=== PATIENT | male | born 1980 | race Caucasian/White ===

== ENCOUNTER 2024-11-02 23:54 | Emergency (ER) | payer OTHER, SELFPAY ==
[2024-11-02 23:57] VITALS: BP 130/90
[2024-11-03 00:24] LABS: Urine Character Clear (Clear)
[2024-11-03 00:42] LABS: Hematocrit 41.6 % (39.0-52.0); Hemoglobin 14.6 g/dL (13.0-18.0); Mean Corp Hgb Conc. 35.1 g/dL (33.0-37.0); Mean Corpuscular Volume 95.0 fL (80.0-94.0); Nucleated Red Blood Cells % 0 % (-); Platelet Count 200 10^3/uL (130-400); Red Cell Dist. Width 12.8 % (11.5-14.5)
[2024-11-03 00:56] LABS: ALT (SGPT) 37 U/L (0-50); AST (SGOT) 150 U/L (17-59); Albumin 5.2 g/dl (3.5-5.0); Alkaline Phosphatase 54 U/L (38-126); Blood Urea Nitrogen 13 mg/dl (9-20); Calcium 10.4 mg/dl (8.4-10.2); Carbon Dioxide 25 mmol/L (22-30); Chloride 103 mmol/L (98-107); Glucose 115 mg/dl (70-99); Lipase 70 U/L (23-300); Potassium 4.1 mmol/L (3.5-5.1); Sodium 138 mmol/L (135-145); Total Protein 8.0 g/dl (6.3-8.2); eGFR > 60.00
[2024-11-03 01:26] LABS: Urine Red Blood Cell 0-2 /HPF (0-2)
[2024-11-03 02:12] LABS: Urine Squamous Cell 0-2 /LPF (Few)
[2024-11-03 03:38] VITALS: BMI 22.1
[2024-11-03 03:40] VITALS: BP 115/75
--- NOTE | 2024-11-03 04:15 | ED.GENMED ---
History of Present Illness
<Daniela Iverson PA-C - Last Filed: 11/03/24 10:06>
General
Chief Complaint: Abdominal Pain
Source: patient
Exam Limitations: none
Time Seen by Provider: 11/03/24 03:27
Nursing documentation reviewed up to this point in time: agreed with
History of Present Illness
History of Present Illness:
The patient is a 41-year-old male with a past medical history significant for recurrent UTIs, atonic bladder self cath, presents to the ER today with concerns of generalized abdominal pain and pain localized to the bladder area, persisting for an
unspecified period. Patient states that he gets intermittent urinary infections and pelvic pain. He follows with a urologist from [facility]. He reports that the past few days he has had a burning sensation with explosion of urine and self
cathing procedure. The patient denies any recent fever or vomiting, denies any flank pain. The urine was noted to be abnormal in appearance by the patient he reports that it looks darker. He denies any risk for STDs/STIs. The patient mentions a
significant worsening of symptoms tonight. For his symptoms, the patient started taking left over ciprofloxacin in an unknown amount and dosing for the past 3 days. Patient expresses concern because normally the ciprofloxacin works well for his
infections and this time it is not working. He states that he has had kidney stones and blader stones in the past but this feels different. 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 He is up to date on his
vaccinations. Patient denies chest pain, shortness of breath, dizziness, lightheadedness. He does not drink alcohol or smoke.
Phy Exam
<Daniela Iverson PA-C - Last Filed: 11/03/24 10:06>
General Physical Exam
General Presentation: well appearing and no apparent distress
General age: appears stated age
General Skin: warm and dry
General Habitus: normal
General Mental: alert
General Hydration: appears well hydrated
Eye Exam
Eye Exam: PERRL and EOMI
Cardiovascular Exam
Cardiovascular Exam: regular rate/rhythm and no edema
Pulmonary Exam
Pulmonary Exam: lungs clear and no respiratory distress
Gastrointestinal Exam
Gastrointestinal Exam: normal bowel sounds, non tender, soft, no organomegaly, no pulsatile mass, non distended, no cva tenderness and no masses
Auscultation of Abdomen: normal
Neurological Exam
Neurological Exam: alert and oriented x3
Skin Exam
Skin Exam: normal color and warm/dry
Psychiatric Exam
Psychiatric Exam: anxious
Course
<Daniela Iverson PA-C - Last Filed: 11/03/24 10:06>
Orders/Labs/Results
Orders:
Orders
11/03/24 00:07
Complete Blood Count/With Diff Urgent
Comprehensive Metabolic Panel Urgent
Lipase Urgent
11/03/24 00:11
Urinalysis Urgent
Date Specimen was Collected: 11/03/24
Time Specimen was Collected: 00:01
Urine Microscopic Urgent
Date Specimen was Collected: 11/03/24
Time Specimen was Collected: 00:01
11/03/24 02:44
Abdomen/Pelvis w Contrast CT [CT Abd/pelvis W Iv Cont] Urgent
Comment:
Reason For Exam: abd pain
11/03/24 04:30
CefTRIAXone [Rocephin] 2,000 mg IV NOW STA
Ketorolac [Toradol] 15 mg IV NOW STA
11/03/24 04:42
Sterile Water [Sterile Water For Injection] 20 ml .ROUTE .STK-MED
11/03/24 06:22
US Abdomen Limited Urgent
Comment:
Reason For Exam: abdominal pain, elevated total bili
11/03/24 08:41
Monotest Urgent
11/03/24 08:42
Hepatitis A Antibody, Total Urgent
Hepatitis B Core Ab, Total Urgent
Hepatitis B Surface Antibody Urgent
Hepatitis B Surface Antigen Urgent
Hepatitis C Antibody Urgent
Abnormal Lab Results
11/03/24 11/03/24
00:07 00:11
WBC 14.7 H 10^3/uL
(4.8-10.8)
RBC 4.38 L 10^6/uL
(4.70-6.10)
MCV 95.0 H fL
(80.0-94.0)
MCH 33.3 H pg
(27.0-31.0)
MPV 12.9 H fL
(7.4-10.4)
Abs Immat Gran (auto) 0.1 H 10^3/uL
(0-0.05)
Absolute Neuts (auto) 9.6 H 10^3/uL
(1.4-6.5)
Absolute Monos (auto) 2.0 H 10^3/uL
(0.1-0.6)
Lymphocytes % 19.8 L %
(20.5-51.1)
Monocytes % 13.4 H %
(1.7-9.3)
Glucose 115 H mg/dl
(70-99)
Calcium 10.4 H mg/dl
(8.4-10.2)
Total Bilirubin 1.7 H mg/dl
(0.2-1.3)
AST 150 H U/L
(17-59)
Albumin 5.2 H g/dl
(3.5-5.0)
Urine Ketones 3+ A
(Negative)
Urine Occult Blood 1+ A
(Negative)
Ur Leukocyte Esterase 2+ A
(Negative)
Urine Albumin 2+ A
(Neg - Trace)
11/03/24 00:07
11/03/24 00:07
Vital Signs
Initial and Last Documented VS:
Initial Vital Signs
Temp Pulse Resp BP Pulse Ox
98.5 F 136 24 130/90 98
11/02/24 23:57 11/02/24 23:57 11/02/24 23:57 11/02/24 23:57 11/02/24 23:57
Last Documented Vital Signs
Temp Pulse Resp BP Pulse Ox
98.5 F 73 18 128/80 99
11/02/24 23:57 11/03/24 06:44 11/03/24 06:44 11/03/24 06:44 11/03/24 06:44
<Nayan Morin Jr., KAMILLA-C - Last Filed: 11/05/24 02:03>
Orders/Labs/Results
Orders:
Orders
11/03/24 00:07
Complete Blood Count/With Diff Urgent
Comprehensive Metabolic Panel Urgent
Lipase Urgent
11/03/24 00:11
Urinalysis Urgent
Date Specimen was Collected: 11/03/24
Time Specimen was Collected: 00:01
Urine Microscopic Urgent
Date Specimen was Collected: 11/03/24
Time Specimen was Collected: 00:01
11/03/24 02:44
Abdomen/Pelvis w Contrast CT [CT Abd/pelvis W Iv Cont] Urgent
Comment:
Reason For Exam: abd pain
11/03/24 04:30
CefTRIAXone [Rocephin] 2,000 mg IV NOW STA
Ketorolac [Toradol] 15 mg IV NOW STA
11/03/24 04:42
Sterile Water [Sterile Water For Injection] 20 ml .ROUTE .STK-MED
11/03/24 06:22
US Abdomen Limited Urgent
Comment:
Reason For Exam: abdominal pain, elevated total bili
11/03/24 08:41
Monotest Urgent
11/03/24 08:42
Hepatitis A Antibody, Total Urgent
Hepatitis B Core Ab, Total Urgent
Hepatitis B Surface Antibody Urgent
Hepatitis B Surface Antigen Urgent
Hepatitis C Antibody Urgent
Abnormal Lab Results
11/03/24 11/03/24
00:07 00:11
WBC 14.7 H 10^3/uL
(4.8-10.8)
RBC 4.38 L 10^6/uL
(4.70-6.10)
MCV 95.0 H fL
(80.0-94.0)
MCH 33.3 H pg
(27.0-31.0)
MPV 12.9 H fL
(7.4-10.4)
Abs Immat Gran (auto) 0.1 H 10^3/uL
(0-0.05)
Absolute Neuts (auto) 9.6 H 10^3/uL
(1.4-6.5)
Absolute Monos (auto) 2.0 H 10^3/uL
(0.1-0.6)
Lymphocytes % 19.8 L %
(20.5-51.1)
Monocytes % 13.4 H %
(1.7-9.3)
Glucose 115 H mg/dl
(70-99)
Calcium 10.4 H mg/dl
(8.4-10.2)
Total Bilirubin 1.7 H mg/dl
(0.2-1.3)
AST 150 H U/L
(17-59)
Albumin 5.2 H g/dl
(3.5-5.0)
Urine Ketones 3+ A
(Negative)
Urine Occult Blood 1+ A
(Negative)
Ur Leukocyte Esterase 2+ A
(Negative)
Urine Albumin 2+ A
(Neg - Trace)
11/03/24 00:07
11/03/24 00:07
Vital Signs
Initial and Last Documented VS:
Initial Vital Signs
Temp Pulse Resp BP Pulse Ox
98.5 F 136 24 130/90 98
11/02/24 23:57 11/02/24 23:57 11/02/24 23:57 11/02/24 23:57 11/02/24 23:57
Last Documented Vital Signs
Temp Pulse Resp BP Pulse Ox
98.5 F 73 18 128/80 99
11/02/24 23:57 11/03/24 06:44 11/03/24 06:44 11/03/24 06:44 11/03/24 06:44
<Daniela Iverson PA-C - Last Filed: 11/03/24 10:06>
MDM/Problems Addressed
Differential Diagnosis Includes:
1. Urinary tract infection.
2. Kidney stones (nephrolithiasis).
3. Pyelonephritis.
4. Bladder infection (cystitis).
5. Prostatitis.
6. Interstitial cystitis.
7. Urethritis.
9. Gastrointestinal causes (e.g., appendicitis, diverticulitis).
MDM/Problems Addressed:
The patient is a 41-year-old male with a past medical history significant for recurrent UTIs, atonic bladder self cath, presents to the ER today with concerns of generalized abdominal pain and pain localized to the bladder area, persisting for an
unspecified period. Patient states that he gets intermittent urinary infections and pelvic pain. He has no associated CVA tenderness, fevers or chills, vomiting, nausea.
Patient sent for CT scan which showed thickening of the bladder wall likely related to cystits in the setting of pelvic pain, urinary burning, and abnormal urinalysis. I discussed with patient that he will need to be started on an antibiotic.
Patient is very hesitant to try an antibiotic other than cipro as he fears side effects of new medications. However, has been taking old cipro which has not been helping. I reassured patient that cephalosporins are usually well tolerated.
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
Incidentally, patient was noted to have elevated total bilirubin and elevated AST. He does not drink alcohol. No RUQ pain, no epigastric pain. Lipase normal. No scleral icterus or jaundice on exam. Reviewed findings and case with ED attending. We
will send patient for ultrasound of the gallbladder and liver for further evaluation, hepatitis panel and mono sent off. Patient is unsure if he has had these findings in the past on blood work. He reports that he had blood work done at [facility]
last week but he does not have the blood work with him or on his phone.Discussed with patient that regardless of US findings, should see his primary in close follow up and purchasing buyer evaluation.
Case signed out to ANDREA Morin PA-C pending ultrasound report.
<Daniela Iverson PA-C - Last Filed: 11/03/24 10:06>
*Pulse Oximetry
SaO2: 98
Oxygen Mode of Delivery: Room air
Patient hypoxic: no
*Critical Care Note
Total Time (30-74mins, 75-104mins- exclusive of procedures): Not Applicable
<Nayan Morin Jr., PA-C - Last Filed: 11/05/24 02:03>
Update Note
Update Note:
Care transition pending ultrasound of the abdomen. This was read as normal. Findings were discussed with the patient advised for close urology follow-up. Return precautions given.
ED Attending Note
<Daniela Iverson PA-C - Last Filed: 11/03/24 10:06>
-
Portions of this chart may have been created with voice recognition software.� Occasional wrong word or��sound alike� substitutions may have occurred due to the inherent limitations of voice recognition software.
Discharge Plan
Departure
Patient Disposition: Home (Routine Discharge)
Date of Disposition: 11/03/24
Time of Disposition: 08:29
Patient with high blood pressure during this ER visit?: Yes
Condition: Good
Discharge Problem:
Urinary tract infection, Total bilirubin, elevated, LFT elevation
Instructions: Liver panel, Urinary tract infection in adults - ED (DC), BLOOD PRESSURE
Prescriptions:
New
cefpodoxime 200 mg tablet
200 mg PO BID 7 Days Qty: 14 0RF
Referrals:
José Antonio James MD [Active, Urology] - Follow up in 2-3 days
Ayan Mak MD [Family Provider, Internal Medicine]
Activity Restrictions/Additional Instructions:
As discussed, your total bilirubin today was 1.7 and your AST was 150. You will need repeat blood work and further evaluation by a purchasing buyer.
Please follow up with your urologist.
Based on your pelvic pain, bladder thickening noted on CAT scan, and burning with self catheter placement, it is likely you have a urinary tract infection. You have been given a dose of Rocephin here. Cephalexin has been sent to your pharmacy.
Please take 1 tablet twice daily for 7 days.
PLEASE RETURN TO ER SHOULD YOU DEVELOP FEVERS, ACUTE WORSENING OF YOUR PAIN, YELLOWING OF THE EYES OR SKIN, SHORTNESS OF BREATH, CHEST PAIN, DIZZINESS, LIGHTHEADEDNESS, BLOOD IN YOUR URINE, OR ANY OTHER SIGNS OR SYMPTOMS RECENTLY.
Interventions
Interventions:
*Risk Screen - Suicide Last Done: 11/03/24 03:38
*General Assessment Last Done: 11/03/24 03:38
*Neglect/Abuse Screening Last Done: 11/03/24 03:38
*ED- Fall Risk Assessment Last Done: 11/03/24 03:38
*ED COVID-19 Vaccine History Last Done: 11/03/24 04:09
*Nursing Disposition Last Done: 11/03/24 08:55
AX-Oqigq[facility]-Cwvtsdnvrw Assessment Last Done: 11/03/24 04:07
Discharge Date and Time
Discharge Date/Time: 11/03/24 08:55
Print Language: FAROESE
[2024-11-03] MEDS: TORADOL 15 MG IV (04:45)
[2024-11-03] MEDS: ROCEPHIN 2000 MG IV (04:46)
[2024-11-03 06:44] VITALS: BP 128/80
[2024-11-03 16:29] LABS: Hepatitis B Surface Antigen Negative (Negative)
[2024-11-04 20:04] LABS: Hepatitis C Antibody Negative (Negative)
[2024-11-04 21:20] LABS: Hepatitis A Antibody, Total Negative (Negative)
== END 2024-11-03 08:55 | disposition home or self-care (01) ==
LOC: EMR 23:54
PROVIDERS: Physician Assistant; EMERGENCY PHYSICIAN Student in an Organized Health Care Education/Training Program; FAMILY PHYSICIAN Internal Medicine
DX: N39.0 Urinary tract infection, site not specified (principal); E80.7 Disorder of bilirubin metabolism, unspecified; R79.89 Other specified abnormal findings of blood chemistry; N32.89 Other specified disorders of bladder; R03.0 Elevated blood-pressure reading, without diagnosis of hypertension; N31.2 Flaccid neuropathic bladder, not elsewhere classified; Z87.440 Personal history of urinary (tract) infections; Z87.442 Personal history of urinary calculi; Z90.81 Acquired absence of spleen
CPT/HCPCS: 99284; 96374; 96375; 74177; 76705; 80053; 81003; 81015; 83690; 85025; 86308; 86704; 86705; 86706; 86708; 86709; 86803; 87340; Q9967